=== PATIENT | male | born 1995 | race African-American/Black ===

== ENCOUNTER 2023-04-05 18:06 | Emergency (ER) | payer OTHER ==
[2023-04-05] MEDS ORDERED: Ketorolac Tromethamine 30 MG (1 mL) VIAL ONE (20:02)
[2023-04-05 20:17] LABS: #Basophils 0.1 10x3/uL (0.0-0.2); #Eosinphils 0.3 10x3/uL (0.0-0.5); #Monocytes 0.7 10x3/uL (0.0-1.1); #Neutrophils 3.2 10x3/uL (1.5-8.4); %Basophils 1.1 % (0.0-2.0); %Eosinophils 3.8 % (0.0-6.0); %Lymphocytes 35.1 % (18.0-47.0); %Monocytes 10.3 % (0.0-10.0); %Neutrophils 49.5 % (40.0-75.0); Hematocrit 41.6 % (38.8-50.0); Hemoglobin 14.3 g/dL (13.5-17.5); Mean Corpuscular HGB CONC 34.4 g/dL (32.0-36.0); Mean Corpuscular Hemoglobin 29.9 pg (27.0-33.0); Mean Platelet Volume 8.7 fl (7.4-10.4); Platelet Count 279 10x3/uL (150-450); Red Blood Cell (RBC) Count 4.78 10x6/uL (4.32-5.72); White Blood Cell (WBC) Count 6.5 10x3/uL (3.5-10.5)
[2023-04-05 20:34] LABS: ALT (SGPT) 18 U/L (8-55); AST (SGOT) 19 U/L (5-34); Albumin 4.6 g/dL (3.5-5.0); Alkaline Phosphatase 55 U/L (40-110); Anion Gap 11 mmol/L (10-20); BUN (Urea Nitrogen) 14 mg/dL (8.9-20.6); Bilirubin, Total 0.6 mg/dL (0.2-1.2); Calc. Creatinine Clearance 0 mL/min (70-130); Calcium 9.2 mg/dL (7.8-10.44); Carbon Dioxide 30 mmol/L (22-29); Chloride 104 mmol/L (98-107); Estimated GFR 120; Globulin 2.6 g/dL (2.4-3.5); Protein, Total 7.2 g/dL (6.0-8.3); Sodium 141 mmol/L (136-145)
[2023-04-05 20:37] LABS: Glucose 50 mg/dL (70-105)
[2023-04-05 20:37] LABS: Troponin I Less than 0.010 ng/mL (< 0.028)
[2023-04-05 21:42] LABS: Lipase 32 U/L (8-78)
== END 2023-04-05 21:38 | disposition home or self-care (01) ==
LOC: CSHERS 18:06
DX: M94.0 Chondrocostal junction syndrome [Tietze] (principal)
CPT/HCPCS: 36415; 36416; 80053; 83690; 83735; 84484; 85025; 93005; 96372; J1885